=== PATIENT | female | born 1975 | race Caucasian/White ===

== ENCOUNTER 2018-03-13 07:31 | Day surgery (SDC) | payer BC ==
[~2018-03-13 07:31] MED LIST: HYDROmorphone 2 MG/ML Syringe ONE; Midazolam 1 MG/ML 2 ML SDV ONE; Propofol 200 MG/20 ML SDV ONE; ceFAZolin 2 GM in Premix Bag 1 BAG IV ONE; fentaNYL 250 MCG/5 ML SDV ONE
[2018-03-13] MEDS ORDERED: Methylene Blue 50 MG/10 ML Ampule ONE (07:48)
[2018-03-13] MEDS ORDERED: Bupivacaine 0.25% 10 ML SDV ONE (07:49)
[2018-03-13] MEDS: Lactated Ringers 1,000 ML IV SCH ×2 (07:55→22:30)
[2018-03-13] MEDS ORDERED: Lidocaine 1% 20 ML MDV ONE (08:16)
--- NOTE | 2018-03-13 08:34 | PCM.PREANE ---
Preanesthetic Assessment - Anesthesia/Transfusion/Family Hx Anesthesia History: No Prior Anesthesia Family History of Anesthesia Reaction: No Transfusion History: Prior Transfusion Without Reaction (recieved two units of PRBC's 03/09/18, hemoglobin 10 today) - Review of Systems General: Fatigue Pulmonary: No Symptoms Cardiovascular: No Symptoms Gastrointestinal: Other (controlled GERD, on nexium) Neurological: Other Other: Reports: Anxiety - Physical Assessment NPO Status Date: 03/12/18 NPO Status Time: 23:00 O2 Sat by Pulse Oximetry: 96 Respiratory Rate: 16 Vital Signs: Last Vital Signs Temp 97.7 F 03/13/18 07:58 Pulse 88 03/13/18 07:58 Resp 16 03/13/18 07:58 BP 121/68 03/13/18 07:58 Pulse Ox 96 03/13/18 07:58 Height: 5 ft 6.5 in Weight: 101.605 kg ASA Class: 2 Mental Status: Alert & Oriented x3 Airway Class: Mallampati = 2 Dentition: Reports: Normal Dentition ROM/Head Extension: Full Lungs: Clear to Auscultation Cardiovascular: Regular Rate - Lab Values: Laboratory Last Values WBC 15.46 K/uL (4.0-11.0) H 03/13/18 07:57 RBC 5.35 M/uL (4.30-5.90) 03/13/18 07:57 Hgb 10.9 g/dL (12.0-16.0) L 03/13/18 07:57 Hct 36.3 % (36.0-46.0) 03/13/18 07:57 MCV 67.9 fL (80.0-98.0) L 03/13/18 07:57 MCH 20.4 pg (27.0-32.0) L 03/13/18 07:57 MCHC 30.0 g/dL (31.0-37.0) L 03/13/18 07:57 RDW Std Deviation 65.3 fl (28.0-62.0) H 03/13/18 07:57 RDW Coeff of Jami 27 % (11.0-15.0) H 03/13/18 07:57 Plt Count 432 K/uL (150-400) H 03/13/18 07:57 MPV 9.10 fL (7.40-12.00) 03/13/18 07:57 Nucleated RBC % 0.0 /100WBC 03/13/18 07:57 Nucleated RBCs # 0 K/uL 03/13/18 07:57 - Allergies Allergies/Adverse Reactions: Allergies Allergy/AdvReac Type Severity Reaction Status Date / Time No Known Allergies Allergy Verified 03/08/18 07:36 - Blood Blood Available: Yes Product(s) Available: PRBC - Anesthesia Plan Pre-Op Medication Ordered: None - Acknowledgements Anesthesia Type Planned: General Anesthesia Pt an Appropriate Candidate for the Planned Anesthesia: Yes Alternatives and Risks of Anesthesia Discussed w Pt/Guardian: Yes Pt/Guardian Understands and Agrees with Anesthesia Plan: Yes Additional Comments: 1. abnormal uterine bleeding 2. anemia 3. GERD 4. anxiety PreAnesthesia Questionnaire HEENT History: Reports: Other (See Below) Other HEENT History: wears glasses Gastrointestinal History: Reports: GERD Genitourinary History: Reports: None CONTROL OFFICER History: Reports: Endocrine/Metabolic History: Reports: Obesity/BMI 30+ Hematologic History: Reports: Anemia, Blood Transfusion(s) - Past Surgical History Head Surgeries/Procedures: Reports: None HEENT Surgical History: Reports: Oral Surgery Other HEENT Surgeries/Procedures: wisdom teeth extraction GI Surgical History: Reports: Cholecystectomy Female Surgical History: Reports: Tubal Ligation - SUBSTANCE USE Smoking Status *Q: Never Smoker Tobacco Use Within Last Twelve Months: No Recreational Drug Use History: No - HOME MEDS Home Medications: Home Meds Esomeprazole Magnesium [Nexium] 20 mg PO DAILY 03/08/18 [History] Ferrous Sulfate [Iron] 325 mg PO DAILY 03/08/18 [History] - CURRENT (IN HOUSE) MEDS Current Meds: Current Medications Lactated Ringer's (Ringers, Lactated) 1,000 mls @ 100 mls/hr IV ASDIRECTED [facility] Last Admin: 03/13/18 07:55 Dose: 100 mls/hr Discontinued Medications Bupivacaine HCl (Sensorcaine-Mpf 0.25%) Confirm Administered Dose 10 ml .ROUTE .STK-MED ONE Stop: 03/13/18 07:50 Fentanyl (Sublimaze) Confirm Administered Dose 250 mcg .ROUTE .STK-MED ONE Stop: 03/13/18 07:19 Hydromorphone HCl (Dilaudid) Confirm Administered Dose 2 mg .ROUTE .STK-MED ONE Stop: 03/13/18 07:19 Cefazolin Sodium/Dextrose 2 gm (/ Premix) 50 mls @ 100 mls/hr IV ONETIME ONE Stop: 03/13/18 07:07 Lidocaine HCl (Xylocaine 1%) Confirm Administered Dose 20 ml .ROUTE .STK-MED ONE Stop: 03/13/18 08:17 Methylene Blue (Provayblue) Confirm Administered Dose 50 mg .ROUTE .STK-MED ONE Stop: 03/13/18 07:49 Midazolam HCl (Versed 1 Mg/Ml) Confirm Administered Dose 2 mg .ROUTE .STK-MED ONE Stop: 03/13/18 07:24 Propofol (Diprivan 20 Ml) Confirm Administered Dose 200 mg .ROUTE .STK-MED ONE Stop: 03/13/18 07:19
--- NOTE | 2018-03-13 08:36 | PCM.SN ---
- Free Text/Narrative Note: RN unable to place IV, consulted to place IV. 20 g PIV placed on right hand times two attempts.
[2018-03-13 08:48] LABS: CHLORIDE,CL 105 mmol/L (98-107); SODIUM,NA 140 mmol/L (136-145)
[2018-03-13] MEDS ORDERED: Fluorescein 5 ML Vial ONE (09:45)
[2018-03-13] MEDS ORDERED: Glycopyrrolate 0.2 MG/ML SDV ONE (09:53)
[2018-03-13] MEDS ORDERED: Ondansetron 4 MG/2 ML SDV ONE (09:53)
[2018-03-13] MEDS ORDERED: Rocuronium 10 MG/ML 10 ML Syringe ONE (09:53)
[2018-03-13] MEDS ORDERED: Dexamethasone 4 MG/ML 5 ML MDV ONE (09:53)
[2018-03-13] MEDS ORDERED: Neostigmine Methylsulfate 1 MG/ML 5 ML Syringe ONE (10:28)
[2018-03-13] MEDS ORDERED: Propofol 200 MG/20 ML SDV ONE (10:30)
[2018-03-13] MEDS ORDERED: fentaNYL 100 MCG/2 ML SDV IVPUSH PRN (11:22)
[2018-03-13] MEDS ORDERED: Ketorolac 30 MG/ML SDV IVPUSH PRN ×2 (11:39→11:51)
[2018-03-13] MEDS: Acetaminophen 1,000 MG in Premix Bag 1 BAG IV SCH ×4 (11:44→18:24)
--- NOTE | 2018-03-13 11:50 | PCM.POSTAN ---
POST ANESTHESIA ASSESSMENT - MENTAL STATUS Mental Status: Alert, Oriented - RESPIRATORY Respiratory Status: Respiratory Rate WNL, Airway Patent, O2 Saturation Stable, Supplemental Oxygen (per nc) - CARDIOVASCULAR CV Status: Pulse Rate WNL, Blood Pressure Stable - GASTROINTESTINAL GI Status: No Symptoms - PAIN Pain Score: 4 ("comes and goes") - POST OP HYDRATION Hydration Status: Adequate & Stable - OBSERVATIONS Free Text/Narrative:: Pt stable with good pain control. No nausea at this time. Stable to transfer to med/surg for phase II recovery.
[2018-03-13] MEDS ORDERED: Ondansetron 4 MG/2 ML SDV IVPUSH PRN (11:51)
[2018-03-13] MEDS ORDERED: Ketorolac 30 MG/ML SDV IVPUSH ONE (11:51)
[2018-03-13] MEDS ORDERED: Promethazine 25 MG/ML SDV IM PRN (11:51)
[2018-03-13] MEDS ORDERED: Acetaminophen/oxyCODONE 325-5 MG Tab PO PRN ×2 (11:51)
[2018-03-13] MEDS ORDERED: Morphine 4 MG/ML Syringe IVPUSH PRN (11:51)
--- NOTE | 2018-03-13 12:03 | PCM.OPNOTE ---
- General Post-Op/Procedure Note Date of Surgery/Procedure: 03/13/18 Operative Procedure(s): Total Laparoscopic Hysterectomy , Bilateral salphingectomy Findings: Normal sized anteverted uterus Normal Uterus , tubes and ovaries Pre Op Diagnosis: Abnormal Uterine Bleeding Post-Op Diagnosis: Abnormal Uterine Bleeding Anesthesia Technique: Other (see below) (General) Primary Surgeon: Trinh Smith Secondary Surgeon: Petty Morejon Anesthesia Provider: Leonardo Yeung Pathology: Uterus and Tubes Fluid Replacement, Intraop: 1,800 Output, Urine Amount: 80 EBL in mLs: 100 Complications: None Condition: Good Free Text/Narrative:: Intake & Output 03/12/18 03/13/18 03/13/18 22:59 06:59 14:59 Output Total 80 Balance -80
[2018-03-13] MEDS: Metoclopramide 10 MG/2 ML SDV IVPUSH SCH ×3 (12:41→23:59)
[2018-03-14] MEDS: Acetaminophen 1,000 MG in Premix Bag 1 BAG IV SCH ×3 (00:02→05:49)
[2018-03-14] MEDS: Metoclopramide 10 MG/2 ML SDV IVPUSH SCH (05:48)
[2018-03-14 06:36] LABS: CHLORIDE,CL 107 mmol/L (98-107); SODIUM,NA 141 mmol/L (136-145)
--- NOTE | 2018-03-14 07:30 | PCM48HPAN ---
Post Anesthesia Note - EVALUATION WITHIN 48HRS OF ANESTHETIC Vital Signs in Normal Range: Yes Patient Participated in Evaluation: Yes Respiratory Function Stable: Yes Airway Patent: Yes Cardiovascular Function Stable: Yes Hydration Status Stable: Yes Pain Control Satisfactory: Yes Nausea and Vomiting Control Satisfactory: Yes Mental Status Recovered: Yes Resp Rate: 18 - COMMENTS/OBSERVATIONS Free Text/Narrative:: States she slept ok and pain is under control
--- NOTE | 2018-03-14 09:17 | PCM.SURGPN ---
- General Info Date of Service: 03/14/18 Date of Surgery/Procedure: 03/14/18 POD#: 1 Post-Op Diagnosis: 42 yo s/p TLH/BS POD 1 Functional Status: Reports: Pain Controlled, Tolerating Diet, Ambulating, Urinating - Review of Systems General: Reports: No Symptoms HEENT: Reports: No Symptoms Pulmonary: Reports: No Symptoms Cardiovascular: Reports: No Symptoms Gastrointestinal: Reports: No Symptoms Genitourinary: Reports: No Symptoms Musculoskeletal: Reports: No Symptoms Skin: Reports: No Symptoms Neurological: Reports: No Symptoms Psychiatric: Reports: No Symptoms - Patient Data Vitals - Most Recent: Last Vital Signs Temp 36.8 C 03/14/18 07:20 Pulse 90 03/14/18 07:20 Resp 18 03/14/18 07:29 BP 117/56 L 03/14/18 07:20 Pulse Ox 94 L 03/14/18 07:20 Weight - Most Recent: 101.605 kg I&O - Last 24 Hours: Intake & Output 03/13/18 03/14/18 03/14/18 22:59 06:59 14:59 Intake Total 750 2525 Output Total 150 2250 Balance 600 275 Lab Results Last 24 Hrs: Laboratory Results - last 24 hr 03/14/18 03/14/18 Range/Units 05:30 05:40 WBC 13.51 H (4.0-11.0) K/uL RBC 4.52 (4.30-5.90) M/uL Hgb 9.0 L (12.0-16.0) g/dL Hct 31.0 L (36.0-46.0) % MCV 68.6 L (80.0-98.0) fL MCH 19.9 L (27.0-32.0) pg MCHC 29.0 L (31.0-37.0) g/dL RDW Std Deviation 66.5 H (28.0-62.0) fl RDW Coeff of Jami 27 H (11.0-15.0) % Plt Count 387 (150-400) K/uL MPV 9.20 (7.40-12.00) fL Neut % (Auto) 79.6 (48.0-80.0) % Lymph % (Auto) 12.7 L (16.0-40.0) % [place] % (Auto) 7.4 (0.0-15.0) % Eos % (Auto) 0.2 (0.0-7.0) % Baso % (Auto) 0.1 (0.0-1.5) % Neut # (Auto) 10.8 H (1.4-5.7) K/uL Lymph # (Auto) 1.7 (0.6-2.4) K/uL [place] # (Auto) 1.0 H (0.0-0.8) K/uL Eos # (Auto) 0.0 (0.0-0.7) K/uL Baso # (Auto) 0.0 (0.0-0.1) K/uL Nucleated RBC % 0.0 /100WBC Nucleated RBCs # 0 K/uL Sodium 141 (136-145) mmol/L Potassium 3.9 (3.5-5.1) mmol/L Chloride 107 (98-107) mmol/L Carbon Dioxide 26.8 (21.0-32.0) mmol/L BUN 7 (7.0-18.0) mg/dL Creatinine 0.8 (0.6-1.0) mg/dL Est Cr Clr Drug Dosing 87.42 mL/min Estimated GFR (MDRD) > 60.0 ml/min Glucose 104 (74-106) mg/dL Calcium 8.7 (8.5-10.1) mg/dL Med Orders - Current: Current Medications Fentanyl (Sublimaze) 50 - 100 mcg IVPUSH .Q5MIN PRN PRN Reason: Pain Lactated Ringer's (Ringers, Lactated) 1,000 mls @ 100 mls/hr IV ASDIRECTED [facility] Last Admin: 03/13/18 22:30 Dose: 100 mls/hr Acetaminophen 1,000 mg/ Premix 100 mls @ 400 mls/hr IV .ONETIME [facility] Last Infusion: 03/13/18 18:31 Dose: Infused Acetaminophen 1,000 mg/ Premix 100 mls @ 400 mls/hr IV Q6H [facility] Last Admin: 03/14/18 05:49 Dose: 400 mls/hr Ketorolac Tromethamine (Toradol) 30 mg IVPUSH .ONETIME PRN PRN Reason: Pain Last Admin: 03/13/18 11:46 Dose: 30 mg Ketorolac Tromethamine (Toradol) 30 mg IVPUSH Q6H PRN PRN Reason: Pain (severe 7-10) Stop: 03/18/18 11:51 Last Admin: 03/13/18 22:31 Dose: 30 mg Metoclopramide HCl (Reglan) 10 mg IVPUSH Q6H [facility] Last Admin: 03/14/18 05:48 Dose: 10 mg Morphine Sulfate (Morphine) 4 mg IVPUSH Q2H PRN PRN Reason: Pain (severe 7-10) Ondansetron HCl (Zofran) 4 mg IVPUSH Q6H PRN PRN Reason: Nausea/Vomiting Oxycodone/Acetaminophen (Percocet 325-5 Mg) 1 tab PO Q4H PRN PRN Reason: Pain (moderate 4-6) Oxycodone/Acetaminophen (Percocet 325-5 Mg) 2 tab PO Q4H PRN PRN Reason: Pain (moderate 4-6) Promethazine HCl (Phenergan) 25 mg IM Q6H PRN PRN Reason: Nausea/Vomiting Discontinued Medications Bupivacaine HCl (Sensorcaine-Mpf 0.25%) Confirm Administered Dose 10 ml .ROUTE .STK-MED ONE Stop: 03/13/18 07:50 Dexamethasone (Dexamethasone) Confirm Administered Dose 20 mg .ROUTE .STK-MED ONE Stop: 03/13/18 09:54 Fentanyl (Sublimaze) Confirm Administered Dose 250 mcg .ROUTE .STK-MED ONE Stop: 03/13/18 07:19 Fluorescein Sodium (Ak-Fluor) Confirm Administered Dose 5 ml .ROUTE .STK-MED ONE Stop: 03/13/18 09:46 Glycopyrrolate (Robinul) Confirm Administered Dose 0.4 mg .ROUTE .STK-MED ONE Stop: 03/13/18 09:54 Hydromorphone HCl (Dilaudid) Confirm Administered Dose 2 mg .ROUTE .STK-MED ONE Stop: 03/13/18 07:19 Cefazolin Sodium/Dextrose 2 gm (/ Premix) 50 mls @ 100 mls/hr IV ONETIME ONE Stop: 03/13/18 07:07 Last Admin: 03/13/18 12:31 Dose: Not Given Lidocaine HCl (Xylocaine-Mpf 1%) Confirm Administered Dose 5 mls @ as directed .ROUTE .STK-MED ONE Stop: 03/13/18 09:54 Acetaminophen (Ofirmev) Confirm Administered Dose 100 mls @ as directed IV .STK- MED ONE Stop: 03/13/18 11:43 Ketorolac Tromethamine (Toradol) 30 mg IVPUSH ONETIME ONE Stop: 03/13/18 11:52 Last Admin: 03/13/18 12:33 Dose: Not Given Lidocaine HCl (Xylocaine 1%) Confirm Administered Dose 20 ml .ROUTE .STK-MED ONE Stop: 03/13/18 08:17 Last Admin: 03/13/18 12:32 Dose: Not Given Methylene Blue (Provayblue) Confirm Administered Dose 50 mg .ROUTE .STK-MED ONE Stop: 03/13/18 07:49 Midazolam HCl (Versed 1 Mg/Ml) Confirm Administered Dose 2 mg .ROUTE .STK-MED ONE Stop: 03/13/18 07:24 Neostigmine Methylsulfate (Neostigmine) Confirm Administered Dose 5 mg .ROUTE .ST-MED ONE Stop: 03/13/18 10:29 Ondansetron HCl (Zofran) Confirm Administered Dose 4 mg .ROUTE .STK-MED ONE Stop: 03/13/18 09:54 Propofol (Diprivan 20 Ml) Confirm Administered Dose 200 mg .ROUTE .STK-MED ONE Stop: 03/13/18 07:19 Propofol (Diprivan 20 Ml) Confirm Administered Dose 200 mg .ROUTE .STK-MED ONE Stop: 03/13/18 10:31 Rocuronium Vincent (Zemuron) Confirm Administered Dose 100 mg .ROUTE .ST-MED ONE Stop: 03/13/18 09:54 - Exam Wound/Incisions: Dressing Dry and Intact General: Alert HEENT: Pupils Equal Lungs: Clear to Auscultation Cardiovascular: Regular Rate GI/Abdominal Exam: Normal Bowel Sounds Extremities: Normal Inspection Neurological: No New Focal Deficit Psy/Mental Status: Alert - Problem List & Annotations (1) S/P hysterectomy SNOMED Code(s): 588294577, 006092328, 362033800 Code(s): Z90.710 - ACQUIRED ABSENCE OF BOTH CERVIX AND UTERUS Status: Acute Current Visit: Yes - Problem List Review Problem List Initiated/Reviewed/Updated: Yes - My Orders Last 24 Hours: Active Orders 24 hr Category Date Time Status Patient Status [ADT] Routine ADT 03/13/18 11:51 Active Notify Provider Intake and Out [RC] ASDIRECTED Care 03/13/18 11:51 Active Notify Provider Vital Signs [RC] ASDIRECTED Care 03/13/18 11:51 Active Oxygen Therapy [RC] ASDIRECTED Care 03/13/18 11:51 Active RT Incentive Spirometry [RC] Q2HWA Care 03/13/18 11:51 Active Up With Assistance [RC] PER UNIT ROUTINE Care 03/13/18 11:51 Active Up ad Geovanna [RC] PER UNIT ROUTINE Care 03/13/18 11:51 Active Urinary Catheter Removal [RC] Per Unit Routine Care 03/13/18 11:51 Active Regular Diet [DIET] Diet 03/14/18 Breakfast Active Acetaminophen [Ofirmev] 1,000 mg Med 03/13/18 11:40 Active Premix Bag 1 bag IV .ONETIME Acetaminophen [Ofirmev] 1,000 mg Med 03/13/18 12:00 Active Premix Bag 1 bag IV Q6H Acetaminophen/oxyCODONE [Percocet 325-5 MG] Med 03/13/18 11:51 Active 1 tab PO Q4H PRN Acetaminophen/oxyCODONE [Percocet 325-5 MG] Med 03/13/18 11:51 Active 2 tab PO Q4H PRN Ketorolac [Toradol] Med 03/13/18 11:39 Active 30 mg IVPUSH .ONETIME PRN Ketorolac [Toradol] Med 03/13/18 11:51 Active 30 mg IVPUSH Q6H PRN Metoclopramide [Reglan] Med 03/13/18 12:00 Active 10 mg IVPUSH Q6H Morphine Med 03/13/18 11:51 Active 4 mg IVPUSH Q2H PRN Ondansetron [Zofran] Med 03/13/18 11:51 Active 4 mg IVPUSH Q6H PRN Promethazine [Phenergan] Med 03/13/18 11:51 Active 25 mg IM Q6H PRN fentaNYL [Sublimaze] Med 03/13/18 11:22 Active 50 - 100 mcg IVPUSH .Q5MIN PRN Peripheral IV Discontinue [OM.PC] Routine Oth 03/13/18 11:51 Ordered Sequential Compression Device [OM.PC] Per Unit Routine Oth 03/13/18 11:51 Ordered Resuscitation Status Routine Resus Stat 03/13/18 11:51 Ordered Medication Orders Fentanyl (Sublimaze) 50 - 100 mcg IVPUSH .Q5MIN PRN PRN Reason: Pain Lactated Ringer's (Ringers, Lactated) 1,000 mls @ 100 mls/hr IV ASDIRECTED [facility] Last Admin: 03/13/18 22:30 Dose: 100 mls/hr Infusion: 03/13/18 17:55 Dose: 100 mls/hr Admin: 03/13/18 07:55 Dose: 100 mls/hr Acetaminophen 1,000 mg/ Premix 100 mls @ 400 mls/hr IV .ONETIME [facility] Last Infusion: 03/13/18 18:31 Dose: 400 mls/hr Admin: 03/13/18 18:16 Dose: 400 mls/hr Infusion: 03/13/18 11:59 Dose: 400 mls/hr Admin: 03/13/18 11:44 Dose: 400 mls/hr Acetaminophen 1,000 mg/ Premix 100 mls @ 400 mls/hr IV Q6H [facility] Last Admin: 03/14/18 05:49 Dose: 400 mls/hr Infusion: 03/14/18 00:18 Dose: 400 mls/hr Admin: 03/14/18 00:03 Dose: 400 mls/hr Infusion: 03/13/18 18:39 Dose: 400 mls/hr Admin: 03/13/18 18:24 Dose: 400 mls/hr Admin: 03/13/18 12:35 Dose: Ketorolac Tromethamine (Toradol) 30 mg IVPUSH .ONETIME PRN PRN Reason: Pain Last Admin: 03/13/18 11:46 Dose: 30 mg Ketorolac Tromethamine (Toradol) 30 mg IVPUSH Q6H PRN PRN Reason: Pain (severe 7-10) Stop: 03/18/18 11:51 Last Admin: 03/13/18 22:31 Dose: 30 mg Metoclopramide HCl (Reglan) 10 mg IVPUSH Q6H [facility] Last Admin: 03/14/18 05:48 Dose: 10 mg Admin: 03/13/18 23:59 Dose: 10 mg Admin: 03/13/18 18:16 Dose: 10 mg Admin: 03/13/18 12:41 Dose: 10 mg Morphine Sulfate (Morphine) 4 mg IVPUSH Q2H PRN PRN Reason: Pain (severe 7-10) Ondansetron HCl (Zofran) 4 mg IVPUSH Q6H PRN PRN Reason: Nausea/Vomiting Oxycodone/Acetaminophen (Percocet 325-5 Mg) 1 tab PO Q4H PRN PRN Reason: Pain (moderate 4-6) Oxycodone/Acetaminophen (Percocet 325-5 Mg) 2 tab PO Q4H PRN PRN Reason: Pain (moderate 4-6) Promethazine HCl (Phenergan) 25 mg IM Q6H PRN PRN Reason: Nausea/Vomiting - Assessment Assessment (Free Text/Narrative):: 42 yo s/p TLH /BS for AUB POD1 , stable Ambulating , voiding and tolerating regular diet - Plan Plan (Free Text/Narrative):: Discharge home
--- NOTE | 2018-03-14 16:26 | OR ---
SURGEON: GOLDIE SANON DATE OF PROCEDURE: 03/13/2018 PREOPERATIVE DIAGNOSIS: A 42-year-old para 4, with abnormal uterine bleeding. POSTOPERATIVE DIAGNOSIS: A 42-year-old para 4, with abnormal uterine bleeding. PROCEDURES: Total laparoscopic hysterectomy, bilateral salpingectomy. ESTIMATED BLOOD LOSS: 100. IV FLUIDS: 1800. URINE OUTPUT: 18. NOTES AND FINDING: Normal size uterus, anteverted uterus, normal tubes and ovaries. BRIEF HISTORY ABOUT THE PATIENT: She is a 42-year-old para 4 who complained of very heavy bleeding for 11 years. She was having very heavy bleeding and also had anemia. The patient had tried to use tranexamic acid, which did not help. She also declined OCPs for control of bleeding. EMB was done, which was negative. Ultrasound was done, which showed a normal-sized uterus. The patient received 2 units of blood before the transfusion. Coagulation profile was also done and was normal. The patient was explained the risks, benefits, and alternatives. The patient did not want conservative management. She desired a hysterectomy. The patient was counseled of the risk of infection, bleeding, and damage to surrounding structures. She accepted and wishes to proceed. The patient was taken to the operating room with IV fluids volume. In pneumatic compression, stocking was applied to the lower extremity. General anesthesia was performed without difficulty. A dorsolithotomy position was obtained with the Melo stirrups. Both arms were tucked in on both side. On examination under anesthesia showed a normal-sized uterus. The patient was prepared and draped in the usual sterile fashion. A Jackson catheter was deflated. A bivalved speculum was used to expose the cervix. The anterior cervix was grasped with Allis forceps. The uterus was sounded to 9 cm. The Advincula dilator was placed into the cervix. The tip was inflated. The Occluder balloon was also inflated. Attention was then paid to the abdomen. Marcaine was infiltrated into the subumbilical fold. A small incision was made at the umbilical fold and the abdomen was directly entered with the fiberoptic trocar. upon confirmation of entry into the peritoneal cavity. CO2 gas was insufflated into the abdomen to a pressure of 15 mmHg. Intraabdominal survey revealed normal-appearing liver, gallbladder, spleen, pelvic and abdomen was noted above. Again, 2 to 5 mm trocars were inserted into bilateral lower quadrant, two fingerbreadths medial and anterior to the anterior superior iliac spine, and diagonal to the umbilicus. The patient was placed in the Trendelenburg position to facilitate exposure. The uterus was able to be identified and hysterectomy was started on the right and on the left. The IP ligament was identified. The ligature device was used to transect the tube all the way to the level of the cornua. Again, the LigaSure was used to transect the tube around the mesosalpinx all the way to the cornua. Then, the round ligament was then identified and transected in . Also, the ovary was detached from the uterus. Ovarian ligament was coagulated and cut with the aid of the LigaSure device. Then, the flap was created with the aid of the LigaSure device and the Harmonic. The bladder was dissected off the lower uterine segment and upper vagina. Also, the posterior peritoneum was exposed to the level of the uterosacral to expose the uterine vessels. After being skeletonized with the aid of the LigaSure device and harmonic, the Advincula wire sawyer was kept in tension in order to avoid ureteral injury. The LigaSure device was then used to coagulate the uterine vessels at the colpotomy junction above and below with the aid of the Harmonic device. The vagina was entered and scored circumferentially at the cervical vaginal junction. The uterosacral and cardinal ligaments were then completely detached from the cervix. After completion of this, attention was then placed to the vagina where the manipulator bulb was deflated on the cervix and the uterus was taken out of the vagina. The vaginal colpotomy was identified. The Santiago stitch was placed from the posterior vagina to the uterosacral to the peritoneum back to the uterosacral on the other side. The vaginal incision was then stitched in the transverse fashion. The Santiago was then tied to elevate the vagina. The cystoscopy was performed and that showed bilateral jet and bilateral integrity was confirmed. Attention was then paid again to the abdomen for laparoscopy. The incision was noted to be hemostatic. Hemostasis was confirmed intra- abdominally with the peritoneum reduced to above 5 mmHg. The trocars were then removed under direct guidance. The instruments were removed from the abdomen. Laparoscopy incision was sutured with 4-0 Monocryl. Steri-Strips were placed. Good hemostasis was noted on the abdomen. The vagina was then inspected and the vaginal incision was noted to be hemostatic. All instrument count and pad counts were correct x2. The patient was taken to the recovery room in stable condition. ARMANI SIMON /[id number]
== END 2018-03-14 10:16 | disposition home or self-care (01) ==
LOC: MW.SDS 07:31 → MW.MS 12:32 → MW.SDS 03-14 10:16
PROVIDERS: ATTEND Obstetrics & Gynecology
DX: N93.9 Abnormal uterine and vaginal bleeding, unspecified (principal); N88.8 Other specified noninflammatory disorders of cervix uteri; D50.0 Iron deficiency anemia secondary to blood loss (chronic); E66.9 Obesity, unspecified; Z68.35 Body mass index [BMI] 35.0-35.9, adult; K21.9 Gastro-esophageal reflux disease without esophagitis; F41.9 Anxiety disorder, unspecified; Z79.899 Other long term (current) drug therapy
CPT/HCPCS: 36415; 58571; 80048; 84703; 85025; 85027; 86850; 86900; 86901; J0131; J1100; J1170; J1885; J2250; J2405; J2704; J2765; J3010; J3490; J7120